=== PATIENT | female | born 1980 | race African-American/Black ===

== ENCOUNTER 2017-11-20 12:24 | Emergency (ER) | payer SELFPAY ==
[~2017-11-20] VITALS: Ht 152.4 cm; Wt 74.0 kg
[~2017-11-20 12:24] MED LIST: CEPH500C3 PO; IBUP800T23 PO; OFLO1DRO8 RIGHT EYE; ULTR50TA PO
[2017-11-20 12:32] VITALS: BP 123/69; PULSE 98; RESP 18; TEMP 98.3; O2SAT 97
[2017-11-20] MEDS ORDERED: ERYTOIN10 EACH EYE (12:46)
--- NOTE | 2017-11-20 12:49 | PD ---
HPI Chief Complaint: Eye Problems/Injury Time Seen by Provider: 12:44 Travel History International Travel<30 days: No Contact w/Intl Traveler<30days: No Traveled to known affect area: No History of Present Illness HPI 37-year-old female presents to the emergency room for evaluation of bilateral eye irritation, grittiness, redness, and drainage for the past 2 days. Patient states her right eye is worse than the left. She has been using Visine drops without relief in symptoms. She denies any other upper respiratory symptoms. Denies changes in visual acuity, photophobia, or foreign body sensation. States it feels like she has during her eyes. PFSH Past Medical History Diminished Hearing: No : 5 Para: 3 : 2 Social History Alcohol Use: Yes Tobacco Use: Yes Substance Use: Yes (COCAINE, XANAX) Allergies-Medications (Allergen,Severity, Reaction): Coded Allergies: No Known Allergies (Verified Adverse Reaction, Unknown, 11/20/17) Reported Meds & Prescriptions Reported Meds & Active Scripts Active Ocuflox 0.3% Opht Soln (5 Ml) (Ofloxacin) 0.3 % Soln 1 Drop RIGHT EYE QID 10 Days Keflex (Cephalexin Monohydrate) 500 Mg Cap 500 Mg PO BID Ibuprofen 800 Mg Tab 800 Mg PO Q8 PRN Ultram (Tramadol HCl) 50 Mg Tab 1-2 Tabs PO Q6 PRN Review of Systems Except as stated in HPI: all other systems reviewed are Neg Physical Exam Narrative GENERAL: Well-nourished, well-developed female in no acute distress. Afebrile. Ambulatory. SKIN: Focused skin assessment warm/dry. HEAD: Normocephalic. EYES: PERRL, EOMI without pain. No significant discharge. Mild bilateral injection. No scleral icterus. Fluorescein staining reveals no corneal abrasion , ulceration, or foreign body. NECK: Supple, trachea midline. No JVD or lymphadenopathy. CARDIOVASCULAR: Regular rate and rhythm without murmurs, gallops, or rubs. RESPIRATORY: Breath sounds equal bilaterally. No accessory muscle use. PSYCHIATRIC: No delusional thought processes. No hallucinations. Data Data Last Documented VS Vital Signs Date Time Temp Pulse Resp B/P (MAP) Pulse Ox O2 Delivery O2 Flow Rate FiO2 11/20/17 12:34 18 11/20/17 12:32 98.3 98 123/69 (87) 97 [facility] Medical Decision Making Medical Screen Exam Complete: Yes Emergency Medical Condition: Yes Medical Record Reviewed: Yes Differential Diagnosis Uveitis, conjunctivitis, foreign body Narrative Course 37-year-old female presents to the emergency room with bilateral eye redness, drainage, and irritation for the past 2 days. History and physical exam are consistent with conjunctivitis. Discharged with erythromycin ointment. She will follow-up with PCP or return for worsening symptoms. She understands and agrees to plan per Diagnosis Primary Impression: Bilateral conjunctivitis Qualified Codes: H10.33 - Unspecified acute conjunctivitis, bilateral Referrals: Primary Care Physician Additional Instructions: Rest and drink plenty of fluids. Erythromycin ointment as directed, for 5-7 days Follow-up with a primary care physician. Return to the emergency room for worsening symptoms. Scripts Erythromycin Opth Oint (Erythromycin Opth Oint) 5 Mg/Gm Oint 1 APPLIC EACH EYE QID for Infection, #1 TUBE 0 Refills Prov: Marco Chavira MD 11/20/17 Disposition: 01 DISCHARGE HOME Condition: Stable Philly Cortes Nov 20, 2017 12:49
== END 2017-11-20 13:34 | disposition home or self-care (01) ==
LOC: NEPK 12:24
DX: H10.33 Unspecified acute conjunctivitis, bilateral (principal); Z72.0 Tobacco use
CPT/HCPCS: 99283